=== PATIENT | female | born 1945 | race Caucasian/White ===

== ENCOUNTER 2021-11-21 18:35 | Inpatient (IN) ==
[2021-11-21] MEDS: ALPRAZolam 0.5 MG TABLET PO PRN (20:39)
[2021-11-21] MEDS: *HR* Metformin 500 MG TABLET PO SCH (20:39)
[2021-11-21] MEDS: Budesonide/Formoterol 160/4.5 1 PUFF INH IH SCH (21:40)
[2021-11-22 07:07] LABS: Basophils % 0.4 %; Eosinophils # 0.2 K/mcL (0.0-0.6); Eosinophils % 3.4 %; Hematocrit 33.4 % (35.3-44.9); Immature Granulocytes % 0.4 % (0-4); Lymphocytes # 1.4 K/mcL (0.6-4.6); Lymphocytes % 28.3 %; Mean Corpuscular HGB Conc 29.9 g/dL (31.6-35.5); Mean Corpuscular Hemoglobin 30.5 pg (28.0-33.3); Mean Corpuscular Volume 101.8 fL (83.0-100.0); Mean Platelet Volume 10.4 fL (9.4-12.4); Monocytes # 0.8 K/mcL (0.0-1.3); Monocytes % 16.4 %; Neutrophils # 2.4 K/mcL (1.6-8.9); Platelet Count 316 K/mcL (140-400); Red Blood Count 3.28 M/mcL (3.82-4.97); Segmented Neutrophils % 51.1 %; White Blood Count 4.8 K/mcL (4.3-11.1)
[2021-11-22 07:32] LABS: BUN/Creatinine Ratio 30 (6-26); Blood Urea Nitrogen 22 mg/dL (8-23); Calcium 8.8 mg/dL (8.6-10.3); Carbon Dioxide > 45 mEq/L (23-29); Chloride 89 mEq/L (98-107); Glucose 169 mg/dL (70-105); Osmolality,Calculated 303 (280-300); Potassium 3.8 mEq/L (3.5-5.1); Sodium 143 mEq/L (136-145); eGFR For African Americans > 60 (> 60); eGFR For Non-African Americans > 60 (> 60)
[2021-11-22] MEDS: *HR* Enoxaparin 40 MG/0.4 ML SYRINGE SQ SCH (07:37)
[2021-11-22] MEDS: Furosemide 20 MG TABLET PO SCH ×2 (07:56→17:01)
[2021-11-22] MEDS: *HR* Metformin 500 MG TABLET PO SCH ×2 (07:56→20:51)
[2021-11-22] MEDS ORDERED: D5% in Water 1,000 ML IVC PRN (09:03)
[2021-11-22] MEDS ORDERED: Dextrose 4 GM Chewable Tablets PO PRN ×2 (09:03)
[2021-11-22] MEDS ORDERED: *HR* Dextrose 50 % in Water (Syg) 50 ML SYRINGE IVP PRN (09:03)
[2021-11-22] MEDS: predniSONE 5 MG TABLET PO SCH (09:22)
[2021-11-22] MEDS: Loratadine 10 MG TABLET PO SCH (09:22)
[2021-11-22] MEDS: lisinopriL 5 MG TABLET PO SCH (09:22)
[2021-11-22] MEDS: Cholecalciferol (D-3) 1,000 UNIT (25MCG) TABLET PO SCH (09:22)
[2021-11-22] MEDS: Metoprolol XL (24 HR) Succ 25 MG TAB.ER.24H PO SCH (09:22)
[2021-11-22] MEDS: Multivit/Ca/Min/Fe/FA 1 TAB TABLET PO SCH (09:22)
[2021-11-22] MEDS: Budesonide/Formoterol 160/4.5 1 PUFF INH IH SCH ×2 (09:42→21:54)
[2021-11-22] MEDS: Insulin LISPRO 300 UNITS/3 ML VIAL SUBQ SCH ×2 (11:56→16:40)
[2021-11-23] MEDS: *HR* Enoxaparin 40 MG/0.4 ML SYRINGE SQ SCH (06:43)
[2021-11-23] MEDS: *HR* Metformin 500 MG TABLET PO SCH ×2 (08:00→21:48)
[2021-11-23] MEDS: Metoprolol XL (24 HR) Succ 25 MG TAB.ER.24H PO SCH (08:00)
[2021-11-23] MEDS: Multivit/Ca/Min/Fe/FA 1 TAB TABLET PO SCH (08:00)
[2021-11-23] MEDS: Cholecalciferol (D-3) 1,000 UNIT (25MCG) TABLET PO SCH (08:00)
[2021-11-23] MEDS: predniSONE 5 MG TABLET PO SCH (08:00)
[2021-11-23] MEDS: Loratadine 10 MG TABLET PO SCH (08:00)
[2021-11-23] MEDS: lisinopriL 5 MG TABLET PO SCH (08:00)
[2021-11-23] MEDS: ALPRAZolam 0.5 MG TABLET PO PRN ×2 (08:00→21:48)
[2021-11-23] MEDS: Furosemide 20 MG TABLET PO SCH ×2 (08:00→16:54)
[2021-11-23] MEDS: Insulin LISPRO 300 UNITS/3 ML VIAL SUBQ SCH ×3 (08:01→16:54)
[2021-11-23] MEDS: Budesonide/Formoterol 160/4.5 1 PUFF INH IH SCH ×2 (09:31→22:08)
[2021-11-24] MEDS: *HR* Enoxaparin 40 MG/0.4 ML SYRINGE SQ SCH (05:49)
[2021-11-24] MEDS: Insulin LISPRO 300 UNITS/3 ML VIAL SUBQ SCH ×3 (07:38→16:19)
[2021-11-24] MEDS: Metoprolol XL (24 HR) Succ 25 MG TAB.ER.24H PO SCH (08:10)
[2021-11-24] MEDS: lisinopriL 5 MG TABLET PO SCH (08:10)
[2021-11-24] MEDS: Multivit/Ca/Min/Fe/FA 1 TAB TABLET PO SCH (08:10)
[2021-11-24] MEDS: Furosemide 20 MG TABLET PO SCH ×2 (08:10→16:22)
[2021-11-24] MEDS: predniSONE 5 MG TABLET PO SCH (08:10)
[2021-11-24] MEDS: *HR* Metformin 500 MG TABLET PO SCH ×2 (08:11→19:58)
[2021-11-24] MEDS: Cholecalciferol (D-3) 1,000 UNIT (25MCG) TABLET PO SCH (08:11)
[2021-11-24] MEDS: Loratadine 10 MG TABLET PO SCH (08:11)
[2021-11-24] MEDS: Budesonide/Formoterol 160/4.5 1 PUFF INH IH SCH ×2 (09:05→21:48)
[2021-11-24] MEDS: acetaZOLAMIDE 250 MG TABLET PO SCH ×2 (12:17→19:58)
[2021-11-24] MEDS: predniSONE 20 MG TABLET PO SCH (16:22)
[2021-11-24] MEDS: ALPRAZolam 0.5 MG TABLET PO PRN (19:58)
[2021-11-25] MEDS: *HR* Enoxaparin 40 MG/0.4 ML SYRINGE SQ SCH (06:57)
[2021-11-25] MEDS: Insulin LISPRO 300 UNITS/3 ML VIAL SUBQ SCH ×3 (07:28→16:35)
[2021-11-25] MEDS: Multivit/Ca/Min/Fe/FA 1 TAB TABLET PO SCH (08:19)
[2021-11-25] MEDS: Loratadine 10 MG TABLET PO SCH (08:19)
[2021-11-25] MEDS: predniSONE 20 MG TABLET PO SCH ×2 (08:19→16:43)
[2021-11-25] MEDS: Metoprolol XL (24 HR) Succ 25 MG TAB.ER.24H PO SCH (08:19)
[2021-11-25] MEDS: acetaZOLAMIDE 250 MG TABLET PO SCH ×2 (08:20→22:08)
[2021-11-25] MEDS: Furosemide 20 MG/2 ML VIAL IVP SCH ×2 (08:20→16:44)
[2021-11-25] MEDS: Cholecalciferol (D-3) 1,000 UNIT (25MCG) TABLET PO SCH (08:20)
[2021-11-25] MEDS: *HR* Metformin 500 MG TABLET PO SCH ×2 (08:20→22:07)
[2021-11-25] MEDS: lisinopriL 5 MG TABLET PO SCH (08:20)
[2021-11-25] MEDS: Budesonide/Formoterol 160/4.5 1 PUFF INH IH SCH ×2 (09:10→22:04)
[2021-11-25 09:27] LABS: Hematocrit 33.6 % (35.3-44.9); Mean Corpuscular HGB Conc 29.8 g/dL (31.6-35.5); Mean Corpuscular Hemoglobin 29.9 pg (28.0-33.3); Mean Corpuscular Volume 100.6 fL (83.0-100.0); Mean Platelet Volume 10.6 fL (9.4-12.4); Platelet Count 351 K/mcL (140-400); Red Blood Count 3.34 M/mcL (3.82-4.97); Red Cell Distribution Width 12.7 % (11.5-14.5); White Blood Count 7.2 K/mcL (4.3-11.1)
[2021-11-25 09:45] LABS: BUN/Creatinine Ratio 25 (6-26); Blood Urea Nitrogen 20 mg/dL (8-23); Calcium 9.2 mg/dL (8.6-10.3); Carbon Dioxide > 45 mEq/L (23-29); Chloride 88 mEq/L (98-107); Glucose 156 mg/dL (70-105); Osmolality,Calculated 296 (280-300); Potassium 3.4 mEq/L (3.5-5.1); Sodium 140 mEq/L (136-145); eGFR For African Americans > 60 (> 60); eGFR For Non-African Americans > 60 (> 60)
[2021-11-26] MEDS: *HR* Enoxaparin 40 MG/0.4 ML SYRINGE SQ SCH (06:40)
[2021-11-26] MEDS: Insulin LISPRO 300 UNITS/3 ML VIAL SUBQ SCH ×3 (08:54→17:41)
[2021-11-26] MEDS: Multivit/Ca/Min/Fe/FA 1 TAB TABLET PO SCH (08:55)
[2021-11-26] MEDS: Loratadine 10 MG TABLET PO SCH (08:55)
[2021-11-26] MEDS: lisinopriL 5 MG TABLET PO SCH (08:55)
[2021-11-26] MEDS: *HR* Metformin 500 MG TABLET PO SCH ×2 (08:55→20:39)
[2021-11-26] MEDS: predniSONE 20 MG TABLET PO SCH ×2 (08:55→17:35)
[2021-11-26] MEDS: Metoprolol XL (24 HR) Succ 25 MG TAB.ER.24H PO SCH (08:55)
[2021-11-26] MEDS: Cholecalciferol (D-3) 1,000 UNIT (25MCG) TABLET PO SCH (08:55)
[2021-11-26] MEDS: acetaZOLAMIDE 250 MG TABLET PO SCH ×2 (08:55→20:39)
[2021-11-26] MEDS: Furosemide 40 MG TABLET PO SCH ×2 (08:58→17:35)
[2021-11-26] MEDS: Budesonide/Formoterol 160/4.5 1 PUFF INH IH SCH ×2 (09:45→20:51)
[2021-11-26 10:20] LABS: ABG Base Excess 10 mEq/L (-2 to 3); ABG HCO3 40 mEq/L (21-27); ABG Oxygen Saturation 96 % (95-98); ABG PCO2 88 mmHg (35-45); ABG PH 7.27 pH Units (7.32-7.45); ABG PO2 100 mmHg (85-104); ABG TCO2 43 mEq/L (20-26)
[2021-11-26] MEDS: Furosemide 20 MG/2 ML VIAL IVP SCH (13:44)
[2021-11-26] MEDS ORDERED: Haloperidol Lactate 5 MG/ML VIAL IM ONE (23:09)
[2021-11-27] MEDS: *HR* Enoxaparin 40 MG/0.4 ML SYRINGE SQ SCH (06:51)
[2021-11-27 07:58] LABS: Hematocrit 34.1 % (35.3-44.9); Hemoglobin 10.2 g/dL (11.5-15.4); Mean Corpuscular HGB Conc 29.9 g/dL (31.6-35.5); Mean Corpuscular Hemoglobin 29.6 pg (28.0-33.3); Mean Corpuscular Volume 98.8 fL (83.0-100.0); Mean Platelet Volume 10.6 fL (9.4-12.4); Platelet Count 369 K/mcL (140-400); Red Blood Count 3.45 M/mcL (3.82-4.97); Red Cell Distribution Width 12.7 % (11.5-14.5); White Blood Count 8.8 K/mcL (4.3-11.1)
[2021-11-27] MEDS: ALPRAZolam 0.5 MG TABLET PO PRN ×2 (08:33→20:17)
[2021-11-27] MEDS: Insulin LISPRO 300 UNITS/3 ML VIAL SUBQ SCH ×3 (08:33→16:52)
[2021-11-27] MEDS: Multivit/Ca/Min/Fe/FA 1 TAB TABLET PO SCH (08:34)
[2021-11-27] MEDS: *HR* Metformin 500 MG TABLET PO SCH ×2 (08:34→20:16)
[2021-11-27] MEDS: Metoprolol XL (24 HR) Succ 25 MG TAB.ER.24H PO SCH (08:34)
[2021-11-27] MEDS: lisinopriL 5 MG TABLET PO SCH (08:34)
[2021-11-27] MEDS: Loratadine 10 MG TABLET PO SCH (08:34)
[2021-11-27] MEDS: Cholecalciferol (D-3) 1,000 UNIT (25MCG) TABLET PO SCH (08:34)
[2021-11-27] MEDS: Furosemide 40 MG TABLET PO SCH ×2 (08:34→16:52)
[2021-11-27] MEDS: predniSONE 20 MG TABLET PO SCH ×2 (08:34→16:52)
[2021-11-27 09:10] LABS: Calcium 9.2 mg/dL (8.6-10.3); Magnesium 1.8 mg/dL (1.6-2.6); Potassium 3.7 mEq/L (3.5-5.1)
[2021-11-27] MEDS: Budesonide/Formoterol 160/4.5 1 PUFF INH IH SCH ×2 (09:18→21:41)
[2021-11-28] MEDS: *HR* Enoxaparin 40 MG/0.4 ML SYRINGE SQ SCH (05:53)
[2021-11-28] MEDS: lisinopriL 5 MG TABLET PO SCH (08:10)
[2021-11-28] MEDS: Cholecalciferol (D-3) 1,000 UNIT (25MCG) TABLET PO SCH (08:10)
[2021-11-28] MEDS: Metoprolol XL (24 HR) Succ 25 MG TAB.ER.24H PO SCH (08:10)
[2021-11-28] MEDS: predniSONE 20 MG TABLET PO SCH ×2 (08:10→16:31)
[2021-11-28] MEDS: *HR* Metformin 500 MG TABLET PO SCH ×2 (08:10→20:04)
[2021-11-28] MEDS: Loratadine 10 MG TABLET PO SCH (08:11)
[2021-11-28] MEDS: Multivit/Ca/Min/Fe/FA 1 TAB TABLET PO SCH (08:11)
[2021-11-28] MEDS: Insulin LISPRO 300 UNITS/3 ML VIAL SUBQ SCH ×3 (08:12→16:49)
[2021-11-28] MEDS: Budesonide/Formoterol 160/4.5 1 PUFF INH IH SCH ×2 (10:04→20:16)
[2021-11-28] MEDS: ALPRAZolam 0.5 MG TABLET PO PRN (20:04)
[2021-11-29] MEDS: *HR* Enoxaparin 40 MG/0.4 ML SYRINGE SQ SCH (05:23)
[2021-11-29] MEDS: ALPRAZolam 0.5 MG TABLET PO PRN ×2 (07:52→21:32)
[2021-11-29] MEDS: *HR* Metformin 500 MG TABLET PO SCH ×2 (07:52→21:32)
[2021-11-29] MEDS: Insulin LISPRO 300 UNITS/3 ML VIAL SUBQ SCH ×4 (07:52→21:34)
[2021-11-29] MEDS: Multivit/Ca/Min/Fe/FA 1 TAB TABLET PO SCH (07:52)
[2021-11-29] MEDS: Cholecalciferol (D-3) 1,000 UNIT (25MCG) TABLET PO SCH (07:52)
[2021-11-29] MEDS: Loratadine 10 MG TABLET PO SCH (07:52)
[2021-11-29] MEDS: Metoprolol XL (24 HR) Succ 25 MG TAB.ER.24H PO SCH (07:52)
[2021-11-29] MEDS: Budesonide/Formoterol 160/4.5 1 PUFF INH IH SCH ×2 (09:59→21:54)
[2021-11-29] MEDS: predniSONE 20 MG TABLET PO SCH (10:13)
[2021-11-30] MEDS: *HR* Enoxaparin 40 MG/0.4 ML SYRINGE SQ SCH (06:22)
[2021-11-30] MEDS: Insulin LISPRO 300 UNITS/3 ML VIAL SUBQ SCH ×4 (07:39→20:49)
[2021-11-30] MEDS: Budesonide/Formoterol 160/4.5 1 PUFF INH IH SCH ×2 (08:46→22:35)
[2021-11-30] MEDS: Metoprolol XL (24 HR) Succ 25 MG TAB.ER.24H PO SCH (09:37)
[2021-11-30] MEDS: predniSONE 20 MG TABLET PO SCH (09:37)
[2021-11-30] MEDS: Multivit/Ca/Min/Fe/FA 1 TAB TABLET PO SCH (09:38)
[2021-11-30] MEDS: Cholecalciferol (D-3) 1,000 UNIT (25MCG) TABLET PO SCH (09:38)
[2021-11-30] MEDS: *HR* Metformin 500 MG TABLET PO SCH ×2 (09:38→20:49)
[2021-11-30] MEDS: Loratadine 10 MG TABLET PO SCH (09:38)
[2021-11-30] MEDS: ALPRAZolam 0.5 MG TABLET PO PRN (20:48)
[2021-12-01] MEDS: *HR* Enoxaparin 40 MG/0.4 ML SYRINGE SQ SCH (05:52)
[2021-12-01 07:10] LABS: Basophils % 0.1 %; Eosinophils # 0.1 K/mcL (0.0-0.6); Eosinophils % 1.5 %; Hematocrit 34.1 % (35.3-44.9); Hemoglobin 10.2 g/dL (11.5-15.4); Immature Granulocytes % 0.8 % (0-4); Lymphocytes # 1.9 K/mcL (0.6-4.6); Lymphocytes % 24.4 %; Mean Corpuscular HGB Conc 29.9 g/dL (31.6-35.5); Mean Corpuscular Hemoglobin 29.8 pg (28.0-33.3); Mean Corpuscular Volume 99.7 fL (83.0-100.0); Mean Platelet Volume 10.4 fL (9.4-12.4); Monocytes # 1.1 K/mcL (0.0-1.3); Monocytes % 14.1 %; Neutrophils # 4.7 K/mcL (1.6-8.9); Platelet Count 311 K/mcL (140-400); Red Blood Count 3.42 M/mcL (3.82-4.97); Red Cell Distribution Width 12.6 % (11.5-14.5); Segmented Neutrophils % 59.1 %; White Blood Count 7.9 K/mcL (4.3-11.1)
[2021-12-01] MEDS: Multivit/Ca/Min/Fe/FA 1 TAB TABLET PO SCH (08:05)
[2021-12-01] MEDS: *HR* Metformin 500 MG TABLET PO SCH ×2 (08:05→21:07)
[2021-12-01] MEDS: Insulin LISPRO 300 UNITS/3 ML VIAL SUBQ SCH ×4 (08:05→21:33)
[2021-12-01] MEDS: predniSONE 20 MG TABLET PO SCH (08:05)
[2021-12-01] MEDS: Loratadine 10 MG TABLET PO SCH (08:05)
[2021-12-01] MEDS: Cholecalciferol (D-3) 1,000 UNIT (25MCG) TABLET PO SCH (08:06)
[2021-12-01] MEDS: Metoprolol XL (24 HR) Succ 25 MG TAB.ER.24H PO SCH (08:06)
[2021-12-01] MEDS: Budesonide/Formoterol 160/4.5 1 PUFF INH IH SCH ×2 (09:30→22:10)
[2021-12-01 09:44] LABS: BUN/Creatinine Ratio 34 (6-26); Blood Urea Nitrogen 25 mg/dL (8-23); Chloride 91 mEq/L (98-107); Glucose 168 mg/dL (70-105); Osmolality,Calculated 306 (280-300); Potassium 4.2 mEq/L (3.5-5.1); Sodium 144 mEq/L (136-145); eGFR For African Americans > 60 (> 60); eGFR For Non-African Americans > 60 (> 60)
[2021-12-01 09:47] LABS: Carbon Dioxide > 45 mEq/L (23-29)
[2021-12-01] MEDS: Furosemide 20 MG TABLET PO SCH (17:08)
[2021-12-01] MEDS: ALPRAZolam 0.5 MG TABLET PO PRN (21:07)
[2021-12-02] MEDS: Budesonide/Formoterol 160/4.5 1 PUFF INH IH SCH ×2 (09:36→22:20)
[2021-12-02] MEDS: Insulin LISPRO 300 UNITS/3 ML VIAL SUBQ SCH ×4 (10:54→21:35)
[2021-12-02] MEDS: Metoprolol XL (24 HR) Succ 25 MG TAB.ER.24H PO SCH (10:55)
[2021-12-02] MEDS: *HR* Enoxaparin 40 MG/0.4 ML SYRINGE SQ SCH (10:55)
[2021-12-02] MEDS: Cholecalciferol (D-3) 1,000 UNIT (25MCG) TABLET PO SCH (10:56)
[2021-12-02] MEDS: Loratadine 10 MG TABLET PO SCH (10:56)
[2021-12-02] MEDS: predniSONE 10 MG TABLET PO SCH (10:56)
[2021-12-02] MEDS: Multivit/Ca/Min/Fe/FA 1 TAB TABLET PO SCH (10:56)
[2021-12-02] MEDS: Furosemide 20 MG TABLET PO SCH ×2 (10:56→17:27)
[2021-12-02] MEDS: lisinopriL 5 MG TABLET PO SCH (10:56)
[2021-12-02] MEDS: *HR* Metformin 500 MG TABLET PO SCH ×2 (10:56→21:35)
[2021-12-02] MEDS: ALPRAZolam 0.5 MG TABLET PO PRN (21:34)
[2021-12-03] MEDS: *HR* Enoxaparin 40 MG/0.4 ML SYRINGE SQ SCH (06:49)
[2021-12-03] MEDS: Insulin LISPRO 300 UNITS/3 ML VIAL SUBQ SCH ×4 (09:11→20:12)
[2021-12-03] MEDS: Metoprolol XL (24 HR) Succ 25 MG TAB.ER.24H PO SCH (09:12)
[2021-12-03] MEDS: Loratadine 10 MG TABLET PO SCH (09:12)
[2021-12-03] MEDS: lisinopriL 5 MG TABLET PO SCH (09:12)
[2021-12-03] MEDS: ALPRAZolam 0.5 MG TABLET PO PRN (09:12)
[2021-12-03] MEDS: Furosemide 20 MG TABLET PO SCH ×2 (09:12→17:36)
[2021-12-03] MEDS: Multivit/Ca/Min/Fe/FA 1 TAB TABLET PO SCH (09:12)
[2021-12-03] MEDS: Cholecalciferol (D-3) 1,000 UNIT (25MCG) TABLET PO SCH (09:12)
[2021-12-03] MEDS: *HR* Metformin 500 MG TABLET PO SCH ×2 (09:13→20:12)
[2021-12-03] MEDS: predniSONE 10 MG TABLET PO SCH (09:13)
[2021-12-03] MEDS: Budesonide/Formoterol 160/4.5 1 PUFF INH IH SCH ×2 (09:29→20:38)
[2021-12-04] MEDS: *HR* Enoxaparin 40 MG/0.4 ML SYRINGE SQ SCH (06:02)
[2021-12-04] MEDS: Insulin LISPRO 300 UNITS/3 ML VIAL SUBQ SCH ×4 (08:50→21:20)
[2021-12-04] MEDS: lisinopriL 5 MG TABLET PO SCH (08:51)
[2021-12-04] MEDS: predniSONE 10 MG TABLET PO SCH (08:51)
[2021-12-04] MEDS: *HR* Metformin 500 MG TABLET PO SCH ×2 (08:51→21:24)
[2021-12-04] MEDS: Loratadine 10 MG TABLET PO SCH (08:51)
[2021-12-04] MEDS: Furosemide 20 MG TABLET PO SCH ×2 (08:51→16:21)
[2021-12-04] MEDS: Metoprolol XL (24 HR) Succ 25 MG TAB.ER.24H PO SCH (08:51)
[2021-12-04] MEDS: Cholecalciferol (D-3) 1,000 UNIT (25MCG) TABLET PO SCH (08:51)
[2021-12-04] MEDS: Multivit/Ca/Min/Fe/FA 1 TAB TABLET PO SCH (08:52)
[2021-12-04] MEDS: Budesonide/Formoterol 160/4.5 1 PUFF INH IH SCH ×2 (09:44→22:07)
[2021-12-05] MEDS: *HR* Enoxaparin 40 MG/0.4 ML SYRINGE SQ SCH (05:37)
[2021-12-05] MEDS: Budesonide/Formoterol 160/4.5 1 PUFF INH IH SCH ×2 (09:27→22:20)
[2021-12-05] MEDS: Furosemide 20 MG TABLET PO SCH (10:33)
[2021-12-05] MEDS: Cholecalciferol (D-3) 1,000 UNIT (25MCG) TABLET PO SCH (10:33)
[2021-12-05] MEDS: Multivit/Ca/Min/Fe/FA 1 TAB TABLET PO SCH (10:33)
[2021-12-05] MEDS: lisinopriL 5 MG TABLET PO SCH (10:34)
[2021-12-05] MEDS: *HR* Metformin 500 MG TABLET PO SCH ×2 (10:34→20:38)
[2021-12-05] MEDS: Metoprolol XL (24 HR) Succ 25 MG TAB.ER.24H PO SCH (10:34)
[2021-12-05] MEDS: Loratadine 10 MG TABLET PO SCH (10:34)
[2021-12-05] MEDS: Insulin LISPRO 300 UNITS/3 ML VIAL SUBQ SCH ×4 (10:34→20:36)
[2021-12-06] MEDS: Albuterol 2.5 MG/3 ML NEBULIZER IH PRN (03:31)
[2021-12-06] MEDS: *HR* Enoxaparin 40 MG/0.4 ML SYRINGE SQ SCH (06:10)
[2021-12-06] MEDS: Furosemide 20 MG TABLET PO SCH ×3 (07:09→18:30)
[2021-12-06] MEDS: Insulin LISPRO 300 UNITS/3 ML VIAL SUBQ SCH ×4 (08:30→20:08)
[2021-12-06] MEDS: Loratadine 10 MG TABLET PO SCH (08:31)
[2021-12-06] MEDS: *HR* Metformin 500 MG TABLET PO SCH ×2 (08:31→20:09)
[2021-12-06] MEDS: Metoprolol XL (24 HR) Succ 25 MG TAB.ER.24H PO SCH (08:31)
[2021-12-06] MEDS: lisinopriL 5 MG TABLET PO SCH (08:31)
[2021-12-06] MEDS: Cholecalciferol (D-3) 1,000 UNIT (25MCG) TABLET PO SCH (08:31)
[2021-12-06] MEDS: Multivit/Ca/Min/Fe/FA 1 TAB TABLET PO SCH (08:32)
[2021-12-06] MEDS: Budesonide/Formoterol 160/4.5 1 PUFF INH IH SCH ×2 (09:43→22:05)
[2021-12-07] MEDS: Albuterol 2.5 MG/3 ML NEBULIZER IH PRN ×2 (04:11→10:34)
[2021-12-07] MEDS: *HR* Enoxaparin 40 MG/0.4 ML SYRINGE SQ SCH (06:10)
[2021-12-07] MEDS: Metoprolol XL (24 HR) Succ 25 MG TAB.ER.24H PO SCH (08:33)
[2021-12-07] MEDS: *HR* Metformin 500 MG TABLET PO SCH ×2 (08:33→21:26)
[2021-12-07] MEDS: Cholecalciferol (D-3) 1,000 UNIT (25MCG) TABLET PO SCH (08:33)
[2021-12-07] MEDS: Multivit/Ca/Min/Fe/FA 1 TAB TABLET PO SCH (08:33)
[2021-12-07] MEDS: Insulin LISPRO 300 UNITS/3 ML VIAL SUBQ SCH ×4 (08:33→20:46)
[2021-12-07] MEDS: lisinopriL 5 MG TABLET PO SCH (08:33)
[2021-12-07] MEDS: Furosemide 20 MG TABLET PO SCH ×2 (08:34→17:09)
[2021-12-07] MEDS: Loratadine 10 MG TABLET PO SCH (08:34)
[2021-12-07] MEDS: Budesonide/Formoterol 160/4.5 1 PUFF INH IH SCH ×2 (08:40→21:48)
[2021-12-07] MEDS ORDERED: ALPRAZolam 0.25 MG TABLET PO ONE (17:38)
[2021-12-07] MEDS: ALPRAZolam 0.25 MG TABLET PO SCH (21:26)
[2021-12-08] MEDS: *HR* Enoxaparin 40 MG/0.4 ML SYRINGE SQ SCH (06:47)
[2021-12-08 07:45] VITALS: RESP 18
[2021-12-08] MEDS: Albuterol 2.5 MG/3 ML NEBULIZER IH PRN (08:20)
[2021-12-08] MEDS: Budesonide/Formoterol 160/4.5 1 PUFF INH IH SCH ×2 (08:20→22:37)
[2021-12-08] MEDS: *HR* Metformin 500 MG TABLET PO SCH ×2 (09:06→21:19)
[2021-12-08] MEDS: Multivit/Ca/Min/Fe/FA 1 TAB TABLET PO SCH (09:06)
[2021-12-08] MEDS: Cholecalciferol (D-3) 1,000 UNIT (25MCG) TABLET PO SCH (09:07)
[2021-12-08] MEDS: Loratadine 10 MG TABLET PO SCH (09:07)
[2021-12-08] MEDS: ALPRAZolam 0.25 MG TABLET PO SCH ×3 (09:07→21:18)
[2021-12-08] MEDS: lisinopriL 5 MG TABLET PO SCH (09:15)
[2021-12-08] MEDS: Metoprolol XL (24 HR) Succ 25 MG TAB.ER.24H PO SCH (09:15)
[2021-12-08] MEDS: Furosemide 20 MG TABLET PO SCH ×2 (09:16→18:02)
[2021-12-08] MEDS: Insulin LISPRO 300 UNITS/3 ML VIAL SUBQ SCH ×4 (09:18→21:22)
[2021-12-08] MEDS: Albuterol 2.5 MG/3 ML NEBULIZER IH SCH ×3 (13:21→22:37)
[2021-12-09] MEDS: Albuterol 2.5 MG/3 ML NEBULIZER IH SCH ×2 (04:45→09:09)
[2021-12-09] MEDS: *HR* Enoxaparin 40 MG/0.4 ML SYRINGE SQ SCH (06:36)
[2021-12-09 06:58] VITALS: BP 95/56; PULSE 101; TEMP 98
[2021-12-09] MEDS: Insulin LISPRO 300 UNITS/3 ML VIAL SUBQ SCH ×2 (08:29→12:01)
[2021-12-09] MEDS: Furosemide 20 MG TABLET PO SCH (08:36)
[2021-12-09] MEDS: Cholecalciferol (D-3) 1,000 UNIT (25MCG) TABLET PO SCH (08:36)
[2021-12-09] MEDS: Multivit/Ca/Min/Fe/FA 1 TAB TABLET PO SCH (08:36)
[2021-12-09] MEDS: ALPRAZolam 0.25 MG TABLET PO SCH (08:36)
[2021-12-09] MEDS: Loratadine 10 MG TABLET PO SCH (08:37)
[2021-12-09] MEDS: lisinopriL 5 MG TABLET PO SCH (08:37)
[2021-12-09] MEDS: *HR* Metformin 500 MG TABLET PO SCH (08:37)
[2021-12-09] MEDS: Metoprolol XL (24 HR) Succ 25 MG TAB.ER.24H PO SCH (08:37)
[2021-12-09] MEDS: Budesonide/Formoterol 160/4.5 1 PUFF INH IH SCH (09:09)
[2021-12-09 09:12] VITALS: O2SAT 97
[2021-12-09 13:22] LABS: Influenza A PCR Negative (Negative); Influenza B PCR Negative (Negative); Resp. Syncytial Virus PCR Negative (Negative)
[2021-12-09 13:26] LABS: SARS-CoV-2 by PCR (In House) Negative (Negative)
== END 2021-12-09 15:04 | DRG 189 ==
LOC: INPPIK 20:03
PROVIDERS: ADMIT Family Medicine; ATTEND Family Medicine